=== PATIENT | male | born 1975 | race Caucasian/White ===

== ENCOUNTER 2017-01-23 11:36 | Emergency (ER) | payer OTHER ==
[~2017-01-23] VITALS: Ht 188 cm; Wt 100.0 kg
[~2017-01-23 11:36] MED LIST: CALC500T9 PO; RIVA15TA PO
[2017-01-23 11:38] VITALS: BP 155/108; PULSE 86; RESP 18; O2SAT 100
--- NOTE | 2017-01-23 11:53 | ED.REPORT ---
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 He c/o associated intermittent right-sided chest pain, mild dyspnea. Pt denies cough, fever, chills, CP otherwise, pleuritic pain, nausea, vomiting, recent heavy lifting. He has had similar symptoms previously which were associated with anxiety. The patient had a spontaneous bilateral PE last year and has been taking Xarelto since without complications or recurrent PEs. He has been seen by a deputy insurance commissioner regarding his PE but the workup was negative. Nursing Notes Stated Complaint: LIGHT HEADED Chief Complaint: Respiratory Distress Nursing Notes Reviewed: Yes Allergies: Coded Allergies: No Known Allergies (Unverified , 02/19/16) Scheduled Rivaroxaban (Xarelto) 15 Mg Tablet 15 MG PO BID Scheduled PRN Calcium Carbonate (Tums) 500 Mg Tab.chew 500 MG PO PRN PRN PRN heart burn General Time Seen by MD: 11:53 Chief Complaint Chest pain Hx Obtained From: Patient Arrived By: Walk-in Sudden in Onset?: No Onset Occurred: Yesterday Symptom Duration: Intermittent Location: : Chest right Quality: Painful Severity: Current: No pain currently Severity: Maximum: Moderate Similar Sx Previous: Yes Past Medical History 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 GI: Denies: Abdominal pain, Nausea, Vomiting Neurologic: Reports: Lightheaded Psychiatric: Reports: Anxiety Physical Exam Initial Vital Signs Vital Signs (First) Date Time Temp Pulse Resp B/P Pulse Ox O2 Delivery O2 Flow Rate FiO2 01/23/17 11:38 36.2 86 18 155/108 100 Room Air Initial VS: Reviewed, Vital signs normal Head / Eyes: Atraumatic, Normocephalic, PERRL ENT: Mucous membranes moist, Conjunctiva normal, No scleral icterus Abdomen / GI: Soft, Non-tender, No guarding, No rebound, No distention Extremities: Vascular intact, Neuro intact, No swelling Skin: Warm, Dry, No cyanosis Neurologic: Alert, Oriented, Nonfocal Psychiatric: Mood/affect normal, Behavior normal, Normal thought content General/Constitutional: Awake, Alert, No acute distress, Well appearing, Cooperative, Not toxic appearing Neck: Atraumatic, Supple, No meningismus, Full range of motion Respiratory / Chest: Atraumatic, Breath sounds NL, Breath sounds = bilat, No respiratory distress, No rales, No rhonchi, No wheezing, No retractions, No stridor, No chest tenderness, No chest wall deformity Cardiovascular: Heart rate NL, Regular rhythm, Heart sounds NL, No gallop, No murmurs, No rubs, Cap refill not delayed, Peripheral circulation NL Interpretation & Diagnostics Lab Results Interpretation Result Diagram: 01/23/17 1210 01/23/17 1210 Test 01/23/17 12:10 01/23/17 12:17 01/23/17 13:41 White Blood Count 6.3th/mm3 (3.8-10.1) Red Blood Count 5.45mil/mm3 (4.40-5.80) Hemoglobin 15.9g/dL (13.8-17.2) Hematocrit 45.7% (41.0-50.0) Mean Corpuscular Volume 83.9fL (81-100) Mean Corpuscular Hemoglobin 29.2pg (27.0-35.0) Mean Corpuscular Hemoglobin Concent 34.8% (32.0-37.0) Red Cell Distribution Width 12.8% (12.3-15.4) Platelet Count 181bil/L (150-400) Neutrophils (%) (Auto) 58.3% (40-74) Lymphocytes (%) (Auto) 32.1% (14-46) Monocytes (%) (Auto) 8.2% (4-12) Eosinophils (%) (Auto) 0.9% (0-5) Basophils (%) (Auto) 0.2% (0-3) Prothrombin Time 13.0sec (8.1-12.5) Prothromb Time International Ratio 1.21ratio D-Dimer < 0.50mg/L FEU (<0.50) Sodium Level 138mEq/L (134-144) Potassium Level 3.8mEq/L (3.5-5.2) Chloride Level 101mEq/L (97-108) Carbon Dioxide Level 19mmol/L (18-29) Blood Urea Nitrogen 15mg/dL (6-24) Creatinine 0.85mg/dL (0.76-1.27) Estimat Glomerular Filtration Rate 106mL/min (>59) Glucose Level 135mg/dL (60-99) Calcium Level 9.7mg/dL (8.5-10.1) Total Bilirubin 0.9mg/dL (0.0-1.2) Aspartate Amino Transf (AST/SGOT) 22U/L (0-50) Alanine Aminotransferase (ALT/SGPT) 25U/L (0-44) Alkaline Phosphatase 80U/L (25-150) Troponin T 0.010ug/L (0.0-0.011) Total Protein 7.0g/dL (6.4-8.4) Albumin 4.6g/dL (3.4-5.0) Hold Purple Top Tube Received (Received) Hold Blue Top Tube Received (Received) Hold Red Top Tube Received (Received) Hold [place] Top Tube Received (Received) Hold Urine Received (Received) ECG Interpretation Time: 13:46 Interpreted by: ED physician Normal ECG Interpretation: Normal ECG w/ rate of... (74), Normal rate, Normal sinus rhythm, No acute ischemic changes, Normal QRS, Normal axis, Normal intervals, Adequate tracing X-Ray Chest Interpretation Chest Xray Interpretation: IMPRESSION: Normal for age. Dictated by: Cedric Adrian M.D. on 01/23/2017 at 13:02 Approved by: Cedric Adrian M.D. on 01/23/2017 at 13:02 View: Portable, 1 view Interpretation / Wet Read by: Interpret - Radiologist Re-Eval/Medical Decision Med Decision/Clinical Course 41-year-old male history of PE now on xarelto presenting with right-sided chest pain yesterday. It has now resolved since yesterday. His EKG shows no acute changes. His d-dimer is negative. His troponins are negative. Likely musculoskeletal though difficult to assess given resolved for one day.. I do not see any acute indication for admission. Suspect PE given negative d-dimer. Recommend follow-up with primary doctor. Source of Hx: Old records Re-Evaluation/Progress : Time of Eval: 13:47 Re-Evaluation/Progress Note: Pt rechecked. Informed pt of plan for treatment. Pt understands and agrees with plan for treatment. F/U instructions and RTER warnings given. All questions addressed. Counseled Regarding: Diagnosis, Lab results, Need for follow-up, When/why to return to ED Discharge & Departure Impression: Primary Impression: Chest pain Chest pain type: unspecified Qualified Code: R07.9 - Chest pain, unspecified Disposition: Home Discharge Condition All VS Reviewed: Yes Condition: Improved Patient Instructions: Chest Pain (ED) Additional Instructions: The cause of your symptoms at this time is unclear, but not immediately dangerous. Labs including markers for heart attack and blood clot were normal. EKG and chest x-ray were also normal. Return to the emergency department if you experience increased chest pain, worsening shortness of breath, high fever, vomiting, passing out or worsening lightheadedness, or for other concerning symptoms. Follow-up with your doctor in 1-3 days for a recheck. Referrals: Shiv Alaniz MD (PCP) Scribe Attestation Portions of this note were transcribed by Brendon Saldana. I, Dr. Gardner, personally performed the history, physical exam and medical decision-making; I reviewed and confirmed the accuracy of the information in the transcribed note. Signed by Teodoro Garcia, 01/23/17 - 1220 copies to: Shiv Alaniz MD, Ben M MD Jan 23, 2017 11:53 BRENDON SALDANA Jan 23, 2017 12:19
[2017-01-23 12:43] LABS: BASOPHILS % (AUTO) 0.2 % (0-3); EOSINOPHILS % (AUTO) 0.9 % (0-5); MONOCYTES % (AUTO) 8.2 % (4-12); Mean Corpuscular Hemoglobin 29.2 pg (27.0-35.0); Mean Corpuscular Volume 83.9 fL (81-100); NEUTROPHILS % (AUTO) 58.3 % (40-74); Platelet Count 181 bil/L (150-400)
[2017-01-23 12:49] LABS: D-Dimer < 0.50 mg/L FEU (<0.50); INR 1.21 ratio
--- NOTE | 2017-01-23 13:03 | DRSVH ---
PROCEDURE: X-RAY CHEST ONE VIEW, PORTABLE ([id number]) INDICATIONS: chest pain TECHNIQUE: One view of the chest was acquired. COMPARISON: None. FINDINGS: Surgical changes and devices: None. Lungs and pleura: No pleural effusions or pneumothorax. Lungs are clear. Mediastinum: Mediastinal contours appear normal. Heart size is normal. Bones and chest wall: No suspicious bony lesions. Overlying soft tissues appear unremarkable. IMPRESSION: Normal for age. Dictated by: Cedric Adrian M.D. on 01/23/2017 at 13:02 Approved by: Cedric Adrian M.D. on 01/23/2017 at 13:02
[2017-01-23 13:11] VITALS: BP 133/76; PULSE 89; RESP 17; O2SAT 99
[2017-01-23 13:16] LABS: TROPONIN T 0.01 ug/L (0.0-0.011)
[2017-01-23 14:27] VITALS: BP 129/68; PULSE 93; RESP 14; O2SAT 95
== END 2017-01-23 14:26 | disposition home or self-care (01) ==
LOC: SED 11:36
DX: R07.9 Chest pain, unspecified (principal); R42 Dizziness and giddiness; R06.00 Dyspnea, unspecified; Z87.891 Personal history of nicotine dependence; Z86.711 Personal history of pulmonary embolism